=== PATIENT | male | born 1965 | race Caucasian/White ===

== ENCOUNTER 2018-02-14 17:06 | Emergency (ER) | payer OTHER ==
[~2018-02-14] VITALS: Ht 185.4 cm; Wt 86.2 kg
[~2018-02-14 17:06] MED LIST: LEVAQUIN 500 M500 M2 PO; PREDNISONE 10 M10 MG PO; PRILOSEC 10MG C10 MG PO; SINGULAIR 10 MG10 M1 PO; VENTOLIN HFA 1818 GM INH
[2018-02-14] MEDS ORDERED: CLARITIN10 MG PO (17:40)
[2018-02-14] MEDS ORDERED: MUCINEX600 MG PO (17:41)
[2018-02-14 19:06] LABS: ABSOLUTE BASOPHILS 0.1 thou/uL (0.0-0.2); ABSOLUTE EOSINOPHILS 0.6 thou/uL (0.0-0.7); ABSOLUTE LYMPHOCYTES 1.8 thou/uL (0.8-5.3); ABSOLUTE MONOCYTES 0.7 thou/uL (0.0-1.2); ABSOLUTE NEUTROPHILS 4.8 thou/uL (1.6-8.1); BASOPHILS 1.4 %; EOSINOPHILS 7.3 %; HEMOGLOBIN 16.6 gm/dL (14.0-18.0); LYMPHOCYTES 23.2 %; MCH 33.5 pg (26.0-34.0); MCHC 33.8 g/dL (28.0-37.0); MCV 98.9 fL (80.0-100.0); MONOCYTES 8.2 %; MPV 7.9 fl. (7.2-11.1); NUCLEATED RBCS 0 /100WBC; PLATELET COUNT* 280 thou/uL (150-400); POLYS 59.9 %; RBC 4.95 mil/uL (4.50-6.00); RDW-CV 13.6 % (10.5-14.5); WBC 7.9 thou/uL (4.0-11.0)
[2018-02-14 19:13] LABS: ANION GAP 6 mmol/L (7-16); BUN 15 mg/dL (7-18); CALCIUM 9.3 mg/dL (8.5-10.1); CHLORIDE 108 mmol/L (98-107); CO2 26 mmol/L (21-32); CREATININE 1.2 mg/dL (0.6-1.3); GLUCOSE 99 mg/dL (70-99); POTASSIUM 4.1 mmol/L (3.5-5.1); SODIUM 140 mmol/L (136-145)
[2018-02-14 19:20] LABS: ALBUMIN 3.7 g/dL (3.4-5.0); ALKALINE PHOSPHATASE 76 U/L (46-116); SGOT 31 U/L (15-37); SGPT 50 U/L (30-65); TOTAL BILIRUBIN 0.9 mg/dL (<0.1-1.0); TROPONIN-I LEVEL <0.06 ng/mL (<0.06)
[2018-02-14] MEDS ORDERED: VENTOLIN HFA 1818 GM INH (19:25)
[2018-02-14] MEDS ORDERED: PREDNISONE50 MG PO (19:25)
[2018-02-14 19:32] VITALS: BP 140/92
--- NOTE | 2018-02-15 19:32 | EKG ---
[place] [address] ELECTROCARDIOGRAM REPORT Name: FRANCI SALEH Room: [facility]#: [id number] Admission: 02/14/18 Attend Phys: Discharge: 02/14/18 Date of : 63 Report #: [id number] THIS REPORT FOR: //name// [facility] ED Test Date: 2018-02-14 Test Time: 18:39:36 Pat Name: FRANCI SALEH Department: Room: Gender: M Drafter Detail: : 1965 Requested By: Chel Samuels Order Number: [id number] MD: Abraham Guzman Measurements Intervals [place] Rate: 51 P: 17 MO: 146 QRS: 44 QRSD: 106 T: 59 QT: 437 QTc: 403 Interpretive Statements Sinus rhythm Borderline ST depression, anterolateral leads Compared to ECG 01/23/2016 11:39:04 ST (T wave) deviation now present Intraventricular conduction delay no longer present Electronically Signed On 02-15-2018 19:32:13 CDT by Abraham Guzman [email or web address] <ELECTRONICALLY SIGNED> By: Abraham Guzman MD, FACC 02/15/18 1932 183 38 Abraham Guzman MD, [facility] /EPI
== END 2018-02-14 19:33 | disposition home or self-care (01) ==
LOC: M.ERS 17:06
PROVIDERS: Nurse Practitioner Family
DX: J44.9 Chronic obstructive pulmonary disease, unspecified (principal); K21.9 Gastro-esophageal reflux disease without esophagitis; Z88.1 Allergy status to other antibiotic agents; Z88.0 Allergy status to penicillin